=== PATIENT | male | born 1990 | race Caucasian/White ===

== ENCOUNTER 2019-06-24 23:38 | Emergency (ER) | payer SELFPAY, OTHER ==
[2019-06-25] MEDS: IBUPROFEN 800 MG TAB PO (01:04)
== END 2019-06-25 01:15 | disposition home or self-care (01) ==
LOC: FTE 23:38
DX: H66.003 Acute suppurative otitis media without spontaneous rupture of ear drum, bilateral (principal); G44.201 Tension-type headache, unspecified, intractable
CPT/HCPCS: 99283